=== PATIENT | male | born 1995 | race Caucasian/White ===

== ENCOUNTER → 2017-11-05 | Outpatient (CLI) | payer BC ==
[2014-04-19 21:52] VITALS: BP 130/84
--- NOTE | 2017-11-05 11:39 | MRI ---
History: Back pain and scoliosis. EXAM: NONCONTRAST MRI EXAM OF THE LUMBAR SPINE Technique: Multi sequence and multiplanar MRI images of the lumbar spine were performed at 1.5 donnie without IV contrast using T1, T2, and STIR sequencing on this exam. Comparison: None. Findings: Biconvex scoliosis is noted. There is diffuse susceptibility artifact at MRI field distortion which o bscures portions of the posterior thecal space and obscures the majority of the posterior elements of this patient. No acute fracture or compression deformity is seen, however. There is no significant d isc pathology or foraminal/spinal canal stenosis. There is nonspecific thickening of multiple exiting nerve roots extending from L2 through S1 which can be seen with lumbar neuritis. This could be corre lated with MRI imaging with IV contrast, however, for assurance. No other L-spine abnormalities are appreciated. There is no evidence for arachnoiditis on this examin ation. No intrathecal mass lesion is observed, although there is field distortion throughout some of the thecal space. No other L-spine abnormalities are appreciated on this exam. Impression: Biconvex scoliosis is noted. There is diffuse susceptibility artifact at MRI field distortion which o bscures portions of the posterior thecal space and obscures the majority of the posterior elements of this patient. No acute fracture or compression deformity is seen, however. There is no significant d isc pathology or foraminal/spinal canal stenosis. There is nonspecific thickening of multiple exiting nerve roots extending from L2 through S1 which can be seen with lumbar neuritis. This could be corre lated with MRI imaging with IV contrast, however, for assurance. No other L-spine abnormalities are appreciated. There is no evidence for arachnoiditis on this examin ation. No intrathecal mass lesion is observed, although there is field distortion throughout some of the thecal space. No other L-spine abnormalities are appreciated on this exam. Reported By:
== END ==
LOC: RAD 10:24
PROVIDERS: ATTEND Internal Medicine
DX: M54.5 Low back pain (principal); M51.86 Other intervertebral disc disorders, lumbar region
CPT/HCPCS: 72148